=== PATIENT | male | born 1970 | race Caucasian/White ===

== ENCOUNTER 2022-11-01 19:34 | Emergency (ER) | payer BC, SELFPAY ==
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
[2022-11-01 19:36] VITALS: BP 135/107; PULSE 116; RESP 16; TEMP 36.4; O2SAT 94
[2022-11-01 19:55] VITALS: BP 136/100; PULSE 119; RESP 16; O2SAT 92
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
[2022-11-01] MEDS: HYDROmorphone HCL INJ (*CRX) 1 MG/ML SYR IV PUSH (20:36)
[2022-11-01] MEDS: CYCLOBENZAPRINE HCL 10 MG TABLET PO (20:36)
[2022-11-01 20:45] VITALS: BP 137/79; PULSE 92; RESP 18; O2SAT 93
[2022-11-01] MEDS: HYDROcodone/acetaminophen (*CRX) 5-325 MG TABLET 1 TAB PO (21:23)
[2022-11-01 21:34] VITALS: BP 117/93; PULSE 104; RESP 20; O2SAT 92
== END 2022-11-01 21:35 | disposition home or self-care (01) ==
PROVIDERS: Emergency Provider Emergency Medicine
DX: S22.42XA Multiple fractures of ribs, left side, initial encounter for closed fracture (principal); S09.90XA Unspecified injury of head, initial encounter; V86.55XA Driver of 3- or 4- wheeled all-terrain vehicle (ATV) injured in nontraffic accident, initial encounter
CPT/HCPCS: 70450; 71250; 96374; 99284; A9270; J1170

== ENCOUNTER 2024-12-19 10:00 | Outpatient (CLI) | payer BC, SELFPAY ==
--- NOTE | ~2024-12-19 | CT_ITS ---
CT of the Abdomen: Indication: Disorder adrenal gland Technique: 2.5 mm axial scans were obtained through the abdomen prior to and following intravenous a dministration of 100 cc of Omnipaque 350. Dose reduction technique was used on this scan by utilizing automated exposure control and iterative reconstruction technique. The dose-length product (DLP) was 2100.48 mGy-cm. Findings: Scans through the lung bases demonstrate linear bibasilar scarring or atelectasis. The liver, spleen, pancreas, gallbladder, adrenals and right kidney are within normal limits. Nonobst ructing left renal stones are present, largest measuring 6 mm. No evidence of aortic aneurysm. No ly mphadenopathy. Small to moderate fat-containing umbilical hernia present. Visualized bowel loops are unremarkable.. No ascites. Impression: No adrenal abnormality seen. Nonobstructing left renal stones. Small to moderate fat-containing umbilical hernia. Reviewed, dictated and finalized at [facility]. MANAGER Impression: No adrenal abnormality seen. Nonobstructing left renal stones. Small to moderate fat-containing umbilical hernia.
[2024-12-19 10:17] LABS: Estimated Glomerular Filt Rate > 60
== END 2024-12-19 10:01 | disposition home or self-care (01) ==
PROVIDERS: PCP Internal Medicine Endocrinology, Diabetes & Metabolism; Visit Provider Internal Medicine Endocrinology, Diabetes & Metabolism
DX: N20.0 Calculus of kidney (principal); K42.9 Umbilical hernia without obstruction or gangrene; E27.9 Disorder of adrenal gland, unspecified
CPT/HCPCS: 74170; Q9967

== ENCOUNTER 2025-04-20 16:43 | Emergency (ER) | payer BC, SELFPAY ==
[2025-04-20 16:44] VITALS: BP 128/96; PULSE 99; RESP 20; TEMP 36.7; O2SAT 98
[2025-04-20 16:49] LABS: Glucose Point of Care 312 mg/dl (65-105)
[2025-04-20] MEDS: SODIUM CHLORIDE 0.9% IV 1,000 ML 999 ML IV CONT ×2 (17:26→18:09)
[2025-04-20 17:36] LABS: Basophils Percent Auto 0.5 % (0.2-1.2); Eosinophils Absolute Auto 0.1 K/mm3 (0-0.3); Eosinophils Percent Auto 1.3 % (0-4.4); Hematocrit 43.9 % (42.0-52.0); Hemoglobin 14.8 g/dL (14.0-18.0); Immature Granulocyte Absolute 0.03 K/mm3 (0.00-0.031); Immature Granulocyte Percent A 0.4 % (0-0.5); Lymphocytes Absolute Auto 2.41 K/mm3 (0.9-3.2); Lymphocytes Percent Auto 28.6 % (18.3-44.2); Mean Corpuscular HGB Conc 33.7 g/dl (32-36); Mean Corpuscular Hemoglobin 28.4 pg (26-34); Mean Corpuscular Volume 84.1 fl (80-100); Mean Platelet Volume 10.4 fl (7.4-10.4); Monocytes Absolute Auto 0.7 K/mm3 (0.1-0.6); Monocytes Percent Auto 8.7 % (2.6-8.5); Neutrophils Absolute Auto 5.1 K/mm3 (1.3-6.7); Neutrophils Percent Auto 60.5 % (45.5-73.1); Platelet Count Result 243 k/mm3 (150-375); Red Blood Count 5.22 M/mm3 (4.6-6.20); White Blood Count 8.4 K/mm3 (4.5-10.0)
[2025-04-20 17:38] LABS: Add Urine Microscopic? NO; Appearance Urine Clear (Clear); Bilirubin Urine Negative (Negative); Blood Urine Negative (Negative); Color Urine Yellow (Yellow); Glucose Urine UA 3+ mg/dL (Negative); Ketones Urine Trace mg/dL (Negative); Leukocyte Esterase Ur Negative LEU/UL (Negative); Nitrate Urine Negative (Negative); Protein Urine Negative (Negative); Specific Grav Ur 1.041 (1.001-1.035); pH Urine 5.5 (5.0-9.0)
--- NOTE | 2025-04-20 17:47 | ED.RECABL ---
HPI - Recheck/Abnormal Lab/Rx General Chief Complaint: Recheck/Abnormal Lab/Rx Stated Complaint: high BG Time Seen by Provider: 04/20/25 17:11 Source: patient Mode of arrival: ambulatory Limitations: no limitations History of Present Illness HPI narrative: This is a 54-year-old male that presents to the emergency department for elevated blood sugar readings. Reports his temperature control inspector has been taking his diabetic medications. Over the last 4 days is blood sugars have been up into the 400s. 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 Denies fevers, vomiting, urinary symptoms. Related Data Allergies Allergy/AdvReac Type Severity Reaction Status Date / Time No Known Allergies Allergy Mild Verified 04/20/25 16:49 Review of Systems Review of Systems: All systems reviewed & are unremarkable except as noted in HPI and below PMFSH Past Medical History Medical History (Updated 04/20/25 @ 18:50 by Alma Petersen PA-C) History of hyperlipidemia History of diabetes mellitus Exam Narrative: GENERAL: Well-appearing, well-nourished, and in no acute distress. HEAD: Normocephalic, atraumatic. EYES: EOMI. ENT: Nares clear, no rhinorrhea or epistaxis. Mucous membranes moist. Oropharynx without tonsillar hypertrophy exudate or other lesions. NECK: Supple. No adenopathy or masses. CHEST: Clear to auscultation. No respiratory distress. No wheezes rales or rhonchi HEART: Regular rate and rhythm. No murmur heard. Normal peripheral pulses. ABDOMEN: Soft, nontender, nondistended, normal active bowel sounds. EXTREMITIES: Normal range of motion. No edema. SKIN: Warm, dry, no rash. NEURO: No focal deficits. Alert and oriented x3. PSYCH: Normal mood and affect Course Course Emergency Course: Patient updated on his workup and agrees with plan of care Vital Signs Vital signs: Vital Signs Temperature 98.0 F 04/20/25 16:44 Pulse Rate 99 04/20/25 16:44 Respiratory Rate 20 04/20/25 16:44 Blood Pressure 128/96 H 04/20/25 16:44 Pulse Oximetry 98 04/20/25 16:44 Oxygen Delivery Room Air 04/20/25 16:44 Temperature 98.0 F 04/20/25 16:44 Pulse Rate 99 04/20/25 16:44 Respiratory Rate 20 04/20/25 16:44 Blood Pressure 128/96 H 04/20/25 16:44 Pulse Oximetry 98 04/20/25 16:44 Oxygen Delivery Room Air 04/20/25 16:44 MDM - Recheck/Abnormal Lab/Rx MDM Narrative Medical decision making narrative: Patient presents to the emergency department for elevated blood sugars. Ongoing over the last couple of days. Does reports he feels a little dehydrated as he works outside. Denies any overt symptoms. His vitals are stable. CBC and metabolic panel without concerning findings. Blood sugar is elevated, but he does not have any anion gap, bicarb is normal. Beta hydroxybutyrate is not elevated. Urine without evidence of infection. Does show some dehydration. Patient hydrated with 2 L of IV fluids in the ED. Blood sugar is in the 200s. Instructed to have further follow-up with his temperature control inspector. He was given warnings to return to the ER Differential Diagnosis Differential diagnosis: Likely other (Dehydration, DKA, elevated blood sugar) Lab Data Attestation: I reviewed the patient's lab results. 04/20/25 17:27 04/20/25 17:27 Labs: Lab Results 04/20/25 04/20/25 04/20/25 Range/Units 16:47 17:27 18:53 WBC 8.4 (4.5-10.0) K/mm3 RBC 5.22 (4.6-6.20) M/mm3 Hgb 14.8 (14.0-18.0) g/dL Hct 43.9 (42.0-52.0) % MCV 84.1 (80-100) fl MCH 28.4 (26-34) pg MCHC 33.7 (32-36) g/dl RDW 12.0 (11.5-14.5) % Plt Count 243 (150-375) k/mm3 MPV 10.4 (7.4-10.4) fl Immature Gran % (Auto) 0.4 (0-0.5) % Neut % (Auto) 60.5 (45.5-73.1) % Lymph % (Auto) 28.6 (18.3-44.2) % [place] % (Auto) 8.7 H (2.6-8.5) % Eos % (Auto) 1.3 (0-4.4) % Baso % (Auto) 0.5 (0.2-1.2) % Lymph # (Auto) 2.41 (0.9-3.2) K/mm3 [place] # (Auto) 0.7 H (0.1-0.6) K/mm3 Eos # (Auto) 0.1 (0-0.3) K/mm3 Baso # (Auto) 0.0 (0.0-0.1) K/mm3 Abs Immat Gran (auto) 0.03 (0.00-0.031) K/mm3 Absolute Neuts (auto) 5.1 (1.3-6.7) K/mm3 Absolute Nucleated RBC 0.000 (0.0-0.012) K/mm3 Nucleated RBC % 0.0 (0.0-0.2) % Sodium 133 L (137-145) mmol/L Potassium 4.5 (3.4-5.0) mmol/L Chloride 99 (98-107) mmol/L Carbon Dioxide 23 (22-30) mmol/L Anion Gap 11 (4-12) mmol/L BUN 16 (9-20) mg/dL Creatinine 0.96 (0.7-1.3) mg/dL Estim Creat Clear Calc 91 ml/min Estimated GFR > 60 (59 - ) Glucose 306 H (65-110) mg/dL POC Capillary Glucose 312 H 223 H (65-105) mg/dl Calcium 9.2 (8.4-10.2) mg/dL Phosphorus 3.3 (2.5-4.5) mg/dL Magnesium 1.9 (1.6-2.3) mg/dL Total Bilirubin 0.9 (0.2-1.3) mg/dL AST 26 (17-59) U/L ALT 22 (6-50) U/L Alkaline Phosphatase 65 (38-126) U/L Total Protein 7.1 (6.3-8.2) g/dL Albumin 4.4 (3.5-5.1) g/dL Beta-Hydroxybutyrate/Acetoacetate 0.20 (0.02-0.27) mmol/L Urine Color Yellow (Yellow) Urine Appearance Clear (Clear) Urine pH 5.5 (5.0-9.0) Ur Specific [place] 1.041 H (1.001-1.035) Urine Protein Negative (Negative) mg/dL Urine Glucose (UA) 3+ H (Negative) mg/dL Urine Ketones Trace H (Negative) mg/dL Ur Blood (Man) Negative (Negative) Urine Nitrate Negative (Negative) Urine Bilirubin Negative (Negative) Urine Urobilinogen 1.0 (<2.0) mg/dL Leukocyte Esterase Rfl Negative (Negative) BIBI/UL Critical Care Time Critical Care Time Critical Care Time: No Discharge Plan Discharge Clinical Impression: Elevated blood sugar, Dehydration Patient Disposition: Home Condition: Improved Instructions: Dehydration (ED), Type 2 Diabetes Management for Adults (ED) Additional Instructions: Return to the emergency department if you experience fever, chest pain, shortness of breath, abdominal pain with nausea and vomiting, weakness, numbness, or any other symptoms that are concerning to you. Your blood work and urine are largely re-assuring today Remain well hydrated. Continue to monitor your blood sugar at home Follow up with your temperature control inspector Patient Language: Luxembourgish Prescriptions: No Action hydrocodone-acetaminophen 5-325 mg tablet 1 tablet PO Q8H PRN (Reason: pain) Qty: 14 0RF cyclobenzaprine 10 mg tablet 10 mg PO BID PRN (Reason: muscle spasm) Qty: 14 0RF Follow-up/Referrals: Quan,Pennie Carrillo MD [Primary Care Provider] -
[2025-04-20 17:49] LABS: Alanine Aminotransferase 22 U/L (6-50); Albumin Level 4.4 g/dL (3.5-5.1); Alkaline Phosphatase 65 U/L (38-126); Anion Gap 11 mmol/L (4-12); Aspartate Amino Transferase 26 U/L (17-59); Bilirubin,Total 0.9 mg/dL (0.2-1.3); Blood Urea Nitrogen 16 mg/dL (9-20); Calcium 9.2 mg/dL (8.4-10.2); Carbon Dioxide 23 mmol/L (22-30); Chloride 99 mmol/L (98-107); Estimated CRCL calculation 91 ml/min; Estimated Glomerular Filt Rate > 60; Glucose 306 mg/dL (65-110); Magnesium 1.9 mg/dL (1.6-2.3); Phosphorus 3.3 mg/dL (2.5-4.5); Potassium 4.5 mmol/L (3.4-5.0); Sodium 133 mmol/L (137-145); Total Protein 7.1 g/dL (6.3-8.2)
[2025-04-20 18:56] LABS: Glucose Point of Care 223 mg/dl (65-105)
[2025-04-20 19:08] VITALS: BP 116/81; PULSE 72; RESP 16; O2SAT 99
== END 2025-04-20 19:27 | disposition home or self-care (01) ==
PROVIDERS: Emergency Provider Physician Assistant; PCP Internal Medicine Endocrinology, Diabetes & Metabolism
DX: E11.65 Type 2 diabetes mellitus with hyperglycemia (principal); E86.0 Dehydration; E78.5 Hyperlipidemia, unspecified
CPT/HCPCS: 36415; 80053; 81003; 82010; 82948; 83735; 84100; 85025; 96360; 99283; J7030